=== PATIENT | male | born 1975 ===

== ENCOUNTER → 2018-01-07 | Outpatient (CLI) | payer BC ==
[2018-01-07 13:26] LABS: COLLECTION METHOD DRY COLLECTION; SPECIMEN CONTAINER POLYPROPYLENE CUP; SPERM MORPHOLOGY SENT TO REFERENC LAB
[2018-01-07 14:55] LABS: COLLECTION SITE ON-SITE; DAYS ABSTINENT 5 DAYS (2-7); ROUND CELL CONC. 0.5 X10^6/mL (<5.1); SA DILUTION CNT 1 88; SA DILUTION CNT 2 80; SA DILUTION FACTOR 2; SA NONMOTILE CONCENTRATION 7.1 X10^6/mL; SA NONMOTILE COUNT1 64; SA NONMOTILE COUNT2 78; SA ROUND CELL COUNT1 4; SA ROUND CELL COUNT2 5; SA SPERM MOTILE CONC 9.7 X10^6mL; SEMEN TESTING TIME 1340; SPERM CONCENTRATION 16.8 X10^6/mL (>12.0); SPERM PROGRESSION 2
== END ==
LOC: LAB 12:54
PROVIDERS: ATTEND Obstetrics & Gynecology Gynecology
DX: N46.11 Organic oligospermia (principal)
CPT/HCPCS: 89320